=== PATIENT | male | born 1955 | race Caucasian/White ===

== ENCOUNTER → 2022-09-10 | Day surgery (SDC) | payer BC, MEDICAID ==
[~2022-09-10] VITALS: Ht 170.2 cm; Wt 95.3 kg
[~2022-09-10] MED LIST: BUPIVACAINE HCL 0.5% 175 ML in ON-Q PM013 DRUG DELIV DEVICE 1 EA IR SCH; BUPIVACAINE HCL IR SCH; BUPIVACAINE HCL/PF 0.5% (5MG/ML) 10ML ONE; CEFAZOLIN SODIUM 1000MG/VIAL ONE; DEXAMETHASONE 4MG/ML 1ML VIAL ONE; FENTANYL CITRATE/PF 50MCG/ML 2ML VIAL IV PRN; FENTANYL CITRATE/PF 50MCG/ML 2ML VIAL ONE; HYDROMORPHONE HCL/PF 2MG/ML CPJ IV PRN; KETOROLAC 30MG/ML VIAL ONE; LACTATED RINGERS 1,000 ML IV SCH; LISI20TA31 PO; MIDAZOLAM HCL 2 MG/2 ML VIAL ONE; ONDANSETRON HCL 4MG/2ML INJ ONE; PHENYLEPHRINE HCL 10 MG/ML 1ML (IV VIAL) IV ONE; PROPOFOL 200MG/20ML VIAL IV ONE; SKIN ADHESIVE 0.7 GM EA TOP ONE; SUCCINYLCHOLINE CHLORIDE 200MG/10ML IV ONE; [UNRECOGNIZED DRUG - OTHER] IR SCH
== END | disposition home or self-care (01) ==
LOC: OR 06:17
PROVIDERS: ATTEND Surgery
DX: K40.90 Unilateral inguinal hernia, without obstruction or gangrene, not specified as recurrent (principal); I10 Essential (primary) hypertension; Z79.899 Other long term (current) drug therapy; Z98.890 Other specified postprocedural states; Z20.822 Contact with and (suspected) exposure to COVID-19
CPT/HCPCS: 49505; 87426; C1781; C9803; J0330; J0690; J1100; J1885; J2250; J2370; J2405; J2704; J3010; J3490